=== PATIENT | female | born 1950 | race Caucasian/White ===

== ENCOUNTER → 2020-11-17 00:43 | Outpatient (CLI) | payer MEDICARE, SELFPAY ==
[2020-11-17 20:44] LABS: SARS-CoV-2 RNA PCR Negative
== END ==
PROVIDERS: PCP Internal Medicine; Visit Provider Internal Medicine Gastroenterology
DX: Z01.812 Encounter for preprocedural laboratory examination (principal); Z20.822 Contact with and (suspected) exposure to COVID-19
CPT/HCPCS: C9803; U0003; U0005

== ENCOUNTER 2020-11-20 01:03 | Day surgery (SDC) | payer MEDICARE, SELFPAY ==
[2020-11-09 14:38] VITALS: BMI 27.6
[2020-11-20 06:24] VITALS: BP 130/80; PULSE 65; RESP 16; TEMP 36.8; O2SAT 100; BMI 28.5
[2020-11-20] MEDS: LACTATED RINGERS 1,000 ML 150 ML IV CONT (06:38)
--- NOTE | 2020-11-20 07:00 | PM.HPGS ---
History of Present Illness History of Present Illness Consent: Risks, benefits, and alternatives have been discussed and questions answered. Patient agrees to proceed with procedure. Chief complaint: Positive Cologard Narrative: Heaven Shore is a 70 year old female For for colon cancer screening. She underwent a colic are test that was positive Review of Systems Review of Systems: All systems reviewed & are unremarkable except as noted in HPI and below PMFSH Family History Family History Father Diabetes mellitus Hypertension Mother Family history of congestive heart failure Social History Social History Smoking status: Never smoker Alcohol intake: current Drinks per week: 1 Substance use: never Substance use type: does not use Living arrangements: with family Gender identity (if verbalized by the patient): Female Meds Home Medications and Allergies Home Medications Medication Instructions Recorded Confirmed Type ergocalciferol (vitamin D2) 50 mcg 2,000 unit PO DAILY #30 tablet 07/27/20 11/20/20 Rx (2,000 unit) tablet irbesartan 300 mg tablet 300 mg PO DAILY #90 tablet 07/27/20 11/20/20 Rx lovastatin 40 mg tablet 40 mg PO DAILY #90 tablet 07/27/20 11/20/20 Rx sertraline 50 mg tablet 50 mg PO DAILY #90 tablet 07/27/20 11/20/20 Rx Allergies Allergy/AdvReac Type Severity Reaction Status Date / Time Iodinated Contrast Media Allergy Intermediate Unknown Verified 11/20/20 06:12 Vital Signs Vital Signs - 24 hr 11/20/20 06:24 Temperature 36.8 C Pulse Rate 65 Respiratory Rate 16 Blood Pressure 130/80 Pulse Oximetry 100 Exam Resp: Auscultation: clear to auscultation bilaterally Cardio: Rate: regular rate Rhythm: regular rhythm GI: GI Palp: Yes Soft to palpation and No Tenderness to palpation present (GI) Assessment and Plan Assessment and plan (1) Colon cancer screening: Code(s): Z12.11 - Encounter for screening for malignant neoplasm of colon Status: Acute Assessment and Plan: Colonoscopy with possible biopsy or polypectomy or cautery or injection of substances.
--- NOTE | 2020-11-20 07:19 | WPDANESEPPF ---
Anes - Initial Pre Proc Eval Procedure: Operation Date: 11/20/20 07:30 Proposed Procedures p Colonoscopy - Isaak Myers MD Date/Time: 11/20/20 07:19 Surgeon: Isaak Myers MD Pre Op Diagnosis: Positive Cologard Patient Data Age: 70 Gender: F Height: 5 ft 9 in Weight: 87.8 kg Last Vital Signs Temp 98.2 F 11/20/20 06:24 Pulse 65 11/20/20 06:24 Resp 16 11/20/20 06:24 BP 130/80 11/20/20 06:24 Pulse Ox 100 11/20/20 06:24 Allergies Allergy/AdvReac Type Severity Reaction Status Date / Time Iodinated Contrast Media Allergy Intermediate Unknown Verified 11/20/20 06:12 Home Medications Medication Instructions Recorded Confirmed Type ergocalciferol (vitamin D2) 50 mcg 2,000 unit PO DAILY #30 tablet 07/27/20 11/20/20 Rx (2,000 unit) tablet irbesartan 300 mg tablet 300 mg PO DAILY #90 tablet 07/27/20 11/20/20 Rx lovastatin 40 mg tablet 40 mg PO DAILY #90 tablet 07/27/20 11/20/20 Rx sertraline 50 mg tablet 50 mg PO DAILY #90 tablet 07/27/20 11/20/20 Rx Patient hx anesthesia problems: none Family hx anesthesia problems: none PMFSH Past Medical History Medical History (Updated 11/20/20 @ 07:15 by Wilner Avendaño MD) Essential (primary) hypertension Mixed hyperlipidemia Family History Family History Father Diabetes mellitus Hypertension Mother Family history of congestive heart failure Social History Social History Smoking status: Never smoker Alcohol intake: current Drinks per week: 1 Substance use: never Substance use type: does not use Living arrangements: with family Gender identity (if verbalized by the patient): Female Anes - Eval Final PreProcedure Day of Procedure 11/20/20 07:19 Patient weight: overweight Heart: regular rate and rhythm Lungs: clear to auscultation Airway: Mallampati scale class II Neurological: alert and oriented Last oral intake: >/= 8 hours ASA classification: II Emergent: no Anesthetic plan: proceed Anesthesia type and monitoring: general GIVS and standard monitoring Informed Consent: The patient's anesthetic plan and its attendant risks and benefits were discussed with the patient/family/POA. Questions were solicited and answers provided to the satisfaction of the patient/family/POA.
[2020-11-20 07:50] VITALS: BP 97/56; PULSE 60; RESP 16; O2SAT 97
--- NOTE | 2020-11-20 07:52 | SUR.OPER ---
Procedure completed. Descending colon polyp unretrievable, Dr. Myers aware.
[2020-11-20 08:00] VITALS: BP 110/63; PULSE 56; RESP 14; O2SAT 99
[2020-11-20 08:10] VITALS: BP 113/65; PULSE 57; RESP 20; O2SAT 99
== END 2020-11-20 08:22 | disposition home or self-care (01) ==
PROVIDERS: PCP Internal Medicine; Visit Provider Internal Medicine Gastroenterology
PROC: 0DJD8ZZ Inspection of Lower Intestinal Tract, Via Natural or Artificial Opening Endoscopic (ICD-10-PCS; CPT 45378; principal; 2020-11-20 07:30)
DX: Z12.11 Encounter for screening for malignant neoplasm of colon (principal); R19.5 Other fecal abnormalities; K63.5 Polyp of colon; K64.8 Other hemorrhoids; K57.30 Diverticulosis of large intestine without perforation or abscess without bleeding; I10 Essential (primary) hypertension; E78.2 Mixed hyperlipidemia
CPT/HCPCS: 45385; J2704; J7120

== ENCOUNTER 2020-12-14 09:58 | Outpatient (CLI) | payer MEDICARE, SELFPAY ==
--- NOTE | ~2020-12-14 | MM_ITS ---
EXAMINATION: MM screening [facility] BI w vishal HISTORY: Screening mammogram TECHNIQUE: Craniocaudal and mediolateral oblique 3-D tomosynthesis images were obtained and synthetic 2-D images were generated. CAD analysis was submitted and interpreted. COMPARISON: 11/22/2018, 08/18/2017 BREAST PARENCHYMAL COMPOSITION: The breasts are almost entirely fatty. FINDINGS: There is no evidence of suspicious mass, calcification, or architectural distortion to sugg est malignancy in either breast. There has been no suspicious interval change. IMPRESSION: 1. No mammographic evidence of malignancy. 2. Recommend routine screening mammography in one year. BI-RADS Category 1: Negative Reviewed, dictated and finalized at location A.
--- NOTE | ~2020-12-14 | DEXA_ITS ---
Bone Density Report Name: Heaven Shore Age: 70 Sex: Female Ethnicity: White Date of : 1950 Indication: postmenopausal; Referring Provider: NENA FIGUEROA Study: Bone densitometry was performed. Exam Date: December 14, 2020 Accession number: [id number] Bone Density: Region BMD T-score Z-score Classification AP Spine (L1-L4) 1.181 1.2 3.3 Normal Femoral Neck (Left) 0.723 -1.1 0.6 Osteopenia Total Hip (Left) 0.903 -0.3 1.1 Normal Total Hip Bilateral Avg 0.929 -0.1 1.4 Normal Femoral Neck (Right) 0.747 -0.9 0.8 Normal Total Hip (Right) 0.954 0.1 1.6 Normal World Health Organization criteria for BMD impression classify patients as: Normal (T-score at or above -1.0), Osteopenia (T-score between -1.0 and -2.5), or Osteoporosis (T-score at or below -2.5). 10-year Fracture Risk(1): Major Osteoporotic Fracture 8.7% Hip Fracture 0.9% Reported Risk Factors: [place] (), Neck BMD=0.723, BMI=29.3 (1) FRAX(R) Version 3.08. Fracture probability calculated for an untreated patient. Fracture probability may be lower if the patient has received treatment. Previous Exams: Region Exam Age BMD T-score BMD Change BMD Change Date g/cm2 vs Baseline vs Previous AP Spine(L1-L4) 12/14/2020 70 1.181 1.2 -0.086(-6.8%)* -0.086(-6.8%)* 08/18/2017 67 1.267 2.0 Total Hip(Left) 12/14/2020 70 0.903 -0.3 -0.001(-0.1%) -0.001(-0.1%) 08/18/2017 67 0.904 -0.3 Total Hip(Right) 12/14/2020 70 0.954 0.1 -0.016(-1.6%) -0.016(-1.6%) 08/18/2017 67 0.969 0.2 *Denotes significance at 95% confidence level, LSC for AP Spine = 0.022 g/cm2, LSC for Total Hip = 0.027 g/cm2 Clinical Information Provided by Patient: Has used the following medications: Vitamin D Patient maximum height was 69 Menopause Age: 54 Drinks caffeinated beverages Onset of menses at age 12 Number of children 2 Impression: The patient has low bone mass, based on the Left Femoral Neck T-score. The patient has an estimated ten-year risk of hip fracture of 0.9% and an estimated ten-year risk of major fracture of 8.7%, based on the WHO FRAX algorithm. The BMD for the AP Spine(L1-L4) decreased, changing by -6.8% since the last DXA exam. Discussion: BONE DENSITY IS LOW AT ONE OR MORE SKELETAL SITES. This patient's lowest T-score is low at one or more skeletal sites. It meets the World Health Organization's (WHO) criteria for ?low bone mass? (T-score between -1.0 and -
== END 2020-12-14 09:59 | disposition home or self-care (01) ==
LOC: ANHIMG 10:01
PROVIDERS: PCP Internal Medicine; Visit Provider Internal Medicine
DX: Z12.31 Encounter for screening mammogram for malignant neoplasm of breast (principal); Z78.0 Asymptomatic menopausal state; M85.852 Other specified disorders of bone density and structure, left thigh
CPT/HCPCS: 77063; 77067; 77080

== ENCOUNTER 2022-01-26 15:00 | Outpatient (CLI) | payer MEDICARE, SELFPAY ==
--- NOTE | ~2022-01-26 | MM_ITS ---
EXAMINATION: MM screening [facility] BI w vishal HISTORY: Screening mammogram TECHNIQUE: Craniocaudal and mediolateral oblique 3-D tomosynthesis images were obtained and synthetic 2-D images were generated. CAD analysis was submitted and interpreted. COMPARISON: 12/14/2020, 11/22/2018, 08/18/2017 bilateral screening mammogram examinations BREAST PARENCHYMAL COMPOSITION: There are scattered areas of fibroglandular density... FINDINGS: There is no evidence of suspicious mass, calcification, or architectural distortion to sugg est malignancy in either breast. There has been no suspicious interval change. IMPRESSION: 1. No mammographic evidence of malignancy. 2. Recommend routine screening mammography in one year. BI-RADS Category 1: Negative Reviewed, dictated and finalized at location A.
== END 2022-01-26 15:01 | disposition home or self-care (01) ==
PROVIDERS: PCP Internal Medicine; Visit Provider Obstetrics & Gynecology
DX: Z12.31 Encounter for screening mammogram for malignant neoplasm of breast (principal)
CPT/HCPCS: 77063; 77067

== ENCOUNTER → 2022-10-25 10:28 | Outpatient (CLI) | payer MEDICARE, SELFPAY ==
--- NOTE | ~2022-10-25 | XR_ITS ---
Right Knee Technique: AP, lateral, and sunrise views were obtained. Clinical History: Pain Findings: No fracture or dislocation is seen. Osseous alignment is anatomic. Minimal tricompartmental degenerative spurring noted. Soft tissues are unremarkable. No joint effusion is seen. Impression: Minimal tricompartmental degenerative spurring. Reviewed, dictated and finalized at [facility]. Impression: Minimal tricompartmental degenerative spurring.
--- NOTE | ~2022-10-25 | XR_ITS ---
Left Knee Technique: AP, lateral, and sunrise views were obtained. Clinical History: Pain Findings: No fracture or dislocation is seen. Osseous alignment is anatomic. Minimal degenerative spu rring at the lateral joint line and patella. Soft tissues are unremarkable. No joint effusion is seen . Impression: Minimal spurring at the lateral joint line and patella. Reviewed, dictated and finalized at location . Impression: Minimal spurring at the lateral joint line and patella.
== END ==
PROVIDERS: PCP Family Medicine; Visit Provider Family Medicine
DX: M25.561 Pain in right knee (principal); M25.562 Pain in left knee
CPT/HCPCS: 73562

== ENCOUNTER 2022-10-25 10:45 | Outpatient (CLI) | payer MEDICARE, SELFPAY ==
[2022-10-25 18:55] LABS: Basophils Percent Auto 0.4 % (0.2-1.2); Eosinophils Percent Auto 0.4 % (0-4.4); Hematocrit 39.6 % (37.0-47.0); Immature Granulocyte Absolute 0.01 K/mm3 (0.00-0.031); Immature Granulocyte Percent A 0.2 % (0-0.5); Lymphocytes Absolute Auto 1.54 K/mm3 (0.9-3.2); Lymphocytes Percent Auto 33.1 % (18.3-44.2); Mean Corpuscular HGB Conc 32.8 g/dl (32-36); Mean Corpuscular Hemoglobin 31.3 pg (26-34); Mean Corpuscular Volume 95.2 fl (80-100); Mean Platelet Volume 9.3 fl (7.4-10.4); Monocytes Absolute Auto 0.5 K/mm3 (0.1-0.6); Monocytes Percent Auto 10.8 % (2.6-8.5); Neutrophils Absolute Auto 2.6 K/mm3 (1.3-6.7); Neutrophils Percent Auto 55.1 % (45.5-73.1); Platelet Count Result 241 k/mm3 (150-375); Red Blood Count 4.16 M/mm3 (4.2-5.4); White Blood Count 4.7 K/mm3 (4.5-10.0)
[2022-10-25 20:04] LABS: Vitamin D 25 Hydroxy 54.3 ng/mL
[2022-10-25 21:28] LABS: Alanine Aminotransferase 35 U/L (6-35); Albumin Level 4.8 g/dL (3.5-5.1); Alkaline Phosphatase 56 U/L (38-126); Anion Gap 9 mmol/L (8-16); Aspartate Amino Transferase 36 U/L (14-36); Bilirubin,Total 0.5 mg/dL (0.2-1.3); Blood Urea Nitrogen 28 mg/dL (7-17); Calcium 9.6 mg/dL (8.4-10.2); Carbon Dioxide 24 mmol/L (22-30); Chloride 110 mmol/L (98-107); Cholesterol 191 mg/dL (0-200); Estimated Glomerular Filt Rate 55; Glucose 104 mg/dL (65-110); HDL Direct 61 mg/dL; Potassium 4.7 mmol/L (3.4-5.0); Sodium 143 mmol/L (137-145); Triglycerides 189 mg/dL (<150)
[2022-10-25 21:39] LABS: LDL Cholesterol Direct 85 mg/dL
== END 2022-10-25 10:46 | disposition home or self-care (01) ==
LOC: ANHGOSHLAB 10:47
PROVIDERS: PCP Family Medicine; Visit Provider Family Medicine
DX: E78.2 Mixed hyperlipidemia (principal); I10 Essential (primary) hypertension; R53.83 Other fatigue; Z13.29 Encounter for screening for other suspected endocrine disorder; E55.9 Vitamin D deficiency, unspecified
CPT/HCPCS: 36415; 80053; 80061; 82306; 84443; 85025

== ENCOUNTER 2022-12-14 12:30 | Outpatient (RCR) | payer MEDICARE, SELFPAY ==
--- NOTE | 2022-11-17 12:41 | PTOPEVAL1 ---
Assessment and note entered by Diane Mckeon, PT, DPT Evaluation Information Assessment Status Evaluation Diagnosis socorro knee pain Onset 4 months Subjective Information Pt reports lateral knee pain socorro, and medial knee pain on the R. She reports about a 4 months history of pain without a CARRIE. Pt reports no pain at rest while on Symbolta, she reports now her pain is only when coming to stand from a low surface, doing superintendent measurement, and when exercising. Reported Pain Level Pain Score 0,0: Self Report Assessment PT Clinical Summary Heaven presents to therapy today for her initial evaluation with a diagnosis of socorro knee pain L > R . Today she demonstrates great active ROM 0-130 deg socorro, great strength grossly 4+/5 - 5/5 throughout her BLEs. She demonstrates no gait deviations and ambulates with a good gait speed. She does have decreased patellar mobility socorro and rest in a medially shifted position. She demonstrates mild deviations during functional movements. Skilled physical therapy services are indicated to improve patellar tracking and mobility, to manage pain, and to return to baseline function. Plan of Care Interventions Gait Training,Hot Pack/Cold Pack,Manual Therapy, Neuro Re-education,Patient/Caregiver Educati, Therapeutic Activities,Therapeutic Exercise PT Services Indicated Yes Treatment Frequency and 1x/wk for 4 wks Duration These treatments will address the objective and functional deficits as defined above. The patient will be advanced safely and appropriately in order for the patient to progress towards his/her prior level of function. Additional exercises will be introduced and as well as a comprehensive home exercise program upon discharge, if needed, ?to ensure carryover of functional gains achieved in the clinic. This treatment plan has been reviewed and agreement upon by the patient.
--- NOTE | 2022-12-14 13:07 | PTOPDC ---
Assessment and note entered by Diane Mckeon, PT, DPT Evaluation Information Assessment Status Discharge Diagnosis socorro knee pain Onset 4 months Subjective Information Pt states overall the knee is doing great. She states she walked 5 miles yesterday without an increase in pain. Pt reports 95% improvement in overall symptoms. Pt reports no functional limitations and no motions that increase her pain. Reported Pain Level Pain Score 0,0: Self Report Assessment PT Clinical Summary Heaven presents to therapy today for her progress report following 4 visits of skilled therapy to treat her socorro knee pain. She reports no tenderness to palpation. She demonstrates improved gait, strength, and body awareness with functional movements. She has met all of her goals and no longer requires skilled therapy. She will be discharged at this time. Plan of Care PT Services Indicated No
== END 2022-12-14 13:10 | disposition home or self-care (01) ==
LOC: ANHGOSHPT 12:30
PROVIDERS: PCP Family Medicine; Visit Provider Family Medicine
DX: M25.561 Pain in right knee (principal); M25.562 Pain in left knee
CPT/HCPCS: 97110; 97112; 97161; 97530

== ENCOUNTER 2023-05-15 08:45 | Outpatient (CLI) | payer MEDICARE, SELFPAY ==
--- NOTE | ~2023-05-15 | MM_ITS ---
EXAMINATION: MM screening [facility] BI w vishal HISTORY: Screening mammogram TECHNIQUE: Craniocaudal and mediolateral oblique 3-D tomosynthesis images were obtained and synthetic 2-D images were generated. CAD analysis was submitted and interpreted. COMPARISON: 01/26/2022, 12/14/2020, 11/22/2018 bilateral screening mammogram examinations BREAST PARENCHYMAL COMPOSITION: There are scattered areas of fibroglandular density. FINDINGS: Stable fibroglandular asymmetry of the breasts since 11/22/2018. There is no evidence of vicky picious mass, calcification, or architectural distortion to suggest malignancy in either breast. Ther e has been no suspicious interval change. IMPRESSION: 1. No mammographic evidence of malignancy. 2. Recommend routine screening mammography in one year. BI-RADS Category 1: Negative Reviewed, dictated and finalized at location A.
== END 2023-05-15 08:46 | disposition home or self-care (01) ==
LOC: ANHIMG 08:47
PROVIDERS: PCP Family Medicine; Visit Provider Obstetrics & Gynecology
DX: Z12.31 Encounter for screening mammogram for malignant neoplasm of breast (principal)
CPT/HCPCS: 77063; 77067

== ENCOUNTER 2023-06-23 09:42 | Outpatient (CLI) | payer MEDICARE, SELFPAY ==
--- NOTE | ~2023-06-23 | DEXA_ITS ---
Bone Density Report Name: DELMER MORRISON Age: 72 Sex: Female Ethnicity: White Date of : 1950 Indication: postmenopausal; screening for osteoporosis; Referring Provider: ELEAZAR VEGA Study: Bone densitometry was performed. Exam Date: June 23, 2023 Accession number: [id number] Bone Density: Region BMD T-score Z-score Classification AP Spine(L1-L4) 1.177 1.2 3.4 Normal Femoral Neck (Left) 0.713 -1.2 0.7 Osteopenia Total Hip (Left) 0.895 -0.4 1.2 Normal Femoral Neck (Right) 0.779 -0.6 1.3 Normal Total Hip (Right) 0.939 0.0 1.6 Normal Total Hip Mean 0.917 -0.2 1.4 Normal World Health Organization criteria for BMD impression classify patients as: Normal (T-score at or above -1.0), Osteopenia (T-score between -1.0 and -2.5), or Osteoporosis (T-score at or below -2.5). 10-year Fracture Risk(1): Major Osteoporotic Fracture 9.4% Hip Fracture 1.2% Reported Risk Factors: [place] (), Neck BMD=0.713, BMI=29.4 (1) FRAX(R) Version 3.08. Fracture probability calculated for an untreated patient. Fracture probability may be lower if the patient has received treatment. Previous Exams: Region Exam Age BMD T-score BMD Change BMD Change Date g/cm2 vs Baseline vs Previous AP Spine (L1-L4) 06/23/2023 72 1.177 1.2 -0.090 (-7.1%) -0.004 (-0.3%) 12/14/2020 70 1.181 1.2 -0.086 (-6.8%) -0.086 (-6.8%) 08/18/2017 67 1.267 2.0 Total Hip(Left) 06/23/2023 72 0.895 -0.4 -0.009 (-1.0%) -0.008 (-0.9%) 12/14/2020 70 0.903 -0.3 -0.001 (-0.1%) -0.001 (-0.1%) 08/18/2017 67 0.904 -0.3 Total Hip(Right) 06/23/2023 72 0.939 0.0 -0.030 (-3.1%) -0.015 (-1.6%) 12/14/2020 70 0.954 0.1 -0.016 (-1.6%) -0.016 (-1.6%) 08/18/2017 67 0.969 0.2 *Denotes significance at 95% confidence level, LSC for AP Spine = 0.022 g/cm2, LSC for Total Hip = 0.027 g/cm2 Clinical Information Provided by Patient: Has used the following medications: Vitamin D Patient maximum height was 69 Menopause Age: 54 Drinks caffeinated beverages Onset of menses at age 12 Number of children 2 Impression: The patient has low bone mass, based on the Left Femoral Neck T-score. The patient has an estimated ten-year risk of hip fracture of 1.2% and an estimated ten-year risk of major fracture of 9.4%, based on the WHO FRAX algorithm. No significant bone loss was observed. Discussion: BONE DENSITY IS LOW AT ONE OR MO
== END 2023-06-23 09:43 | disposition home or self-care (01) ==
PROVIDERS: PCP Family Medicine; Visit Provider Obstetrics & Gynecology
DX: Z78.0 Asymptomatic menopausal state (principal); M85.852 Other specified disorders of bone density and structure, left thigh
CPT/HCPCS: 77080

== ENCOUNTER 2023-11-07 10:12 | Outpatient (CLI) | payer MEDICARE, SELFPAY ==
[2023-11-07 14:33] LABS: Alanine Aminotransferase 34 U/L (6-35); Alkaline Phosphatase 54 U/L (38-126); Anion Gap 5 mmol/L (4-12); Aspartate Amino Transferase 55 U/L (14-36); Bilirubin,Total 0.5 mg/dL (0.2-1.3); Blood Urea Nitrogen 23 mg/dL (7-17); Calcium 8.9 mg/dL (8.4-10.2); Carbon Dioxide 26 mmol/L (22-30); Chloride 106 mmol/L (98-107); Cholesterol 183 mg/dL (0-200); Estimated Glomerular Filt Rate 55; Glucose 98 mg/dL (65-110); HDL Direct 52 mg/dL; Potassium 4.5 mmol/L (3.4-5.0); Sodium 137 mmol/L (137-145); Triglycerides 122 mg/dL (<150)
[2023-11-07 14:44] LABS: LDL Cholesterol Direct 99 mg/dL
== END 2023-11-07 10:13 | disposition home or self-care (01) ==
PROVIDERS: PCP Family Medicine; Visit Provider Family Medicine
DX: E78.2 Mixed hyperlipidemia (principal); Z13.228 Encounter for screening for other metabolic disorders; Z13.220 Encounter for screening for lipoid disorders
CPT/HCPCS: 36415; 80053; 80061

== ENCOUNTER 2024-05-17 08:57 | Outpatient (CLI) | payer MEDICARE, SELFPAY ==
--- NOTE | ~2024-05-17 | MM_ITS ---
EXAMINATION: MM screening [facility] BI w vishal HISTORY: Screening TECHNIQUE: Craniocaudal and mediolateral oblique 3-D tomosynthesis images were obtained and synthetic 2-D images were generated. CAD analysis was submitted and interpreted. COMPARISON: Comparison to multiple prior studies sequentially, with oldest reviewed study dated 08/18. BREAST PARENCHYMAL COMPOSITION: Not dense: There are scattered areas of fibroglandular density. FINDINGS: There is no evidence of suspicious mass, calcification, or architectural distortion to sugg est malignancy in either breast. There has been no suspicious interval change. IMPRESSION: 1. No mammographic evidence of malignancy. 2. Recommend routine screening mammography in one year. BI-RADS Category 1: Negative Reviewed, dictated and finalized at location B.
== END 2024-05-17 08:58 | disposition home or self-care (01) ==
LOC: ANHIMG 09:01
PROVIDERS: PCP Family Medicine; Visit Provider Obstetrics & Gynecology
DX: Z12.31 Encounter for screening mammogram for malignant neoplasm of breast (principal)
CPT/HCPCS: 77063; 77067

== ENCOUNTER 2025-05-19 08:39 | Outpatient (CLI) | payer MEDICARE, SELFPAY ==
--- NOTE | ~2025-05-19 | MM_ITS ---
EXAMINATION: MM screening [facility] BI w vishal HISTORY: Screening TECHNIQUE: Craniocaudal and mediolateral oblique 3-D tomosynthesis images were obtained and synthetic 2-D images were generated. CAD analysis was submitted and interpreted. COMPARISON: 05/17/2024 BREAST PARENCHYMAL COMPOSITION: There are scattered areas of fibroglandular density. FINDINGS: There is no evidence of suspicious mass, calcification, or architectural distortion to suggest malignancy. There has been no suspicious interval change. IMPRESSION: 1. No mammographic evidence of malignancy. Recommend routine screening mammography in one year. BI-RADS Category 2: Benign finding(s) Reviewed, dictated and finalized at location Q. IMPRESSION: 1. No mammographic evidence of malignancy. Recommend routine screening mammogra phy in one year. BI-RADS Category 2: Benign finding(s)
--- NOTE | ~2025-05-19 | DEXA_ITS ---
Bone Density Report Name: DELMER MORRISON Age: 74 Sex: Female Ethnicity: White Date of : 1950 Indication: postmenopausal; screening for osteoporosis; Referring Provider: MASON ESTEBAN Study: Bone densitometry was performed. Exam Date: May 19, 2025 Accession number: [id number] Bone Density: Region BMD T-score Z-score Classification AP Spine(L1-L4) 1.165 1.1 3.4 Normal Femoral Neck (Left) 0.687 -1.5 0.6 Osteopenia Total Hip (Left) 0.933 -0.1 1.6 Normal Femoral Neck (Right) 0.755 -0.8 1.2 Normal Total Hip (Right) 0.956 0.1 1.8 Normal Total Hip Mean 0.944 0.0 1.7 Normal World Health Organization criteria for BMD impression classify patients as: Normal (T-score at or above -1.0), Osteopenia (T-score between -1.0 and -2.5), or Osteoporosis (T-score at or below -2.5). 10-year Fracture Risk(1): Major Osteoporotic Fracture 10% Hip Fracture 1.8% Reported Risk Factors: [place] (), Neck BMD=0.687, BMI=29.7 (1) FRAX(R) Version 3.08. Fracture probability calculated for an untreated patient. Fracture probability may be lower if the patient has received treatment. Previous Exams: Region Exam Age BMD T-score BMD Change BMD Change Date g/cm2 vs Baseline vs Previous AP Spine (L1-L4) 05/19/2025 74 1.165 1.1 -0.102 (-8.0%) -0.012 (-1.0%) 06/23/2023 72 1.177 1.2 -0.090 (-7.1%) -0.004 (-0.3%) 12/14/2020 70 1.181 1.2 -0.086 (-6.8%) -0.086 (-6.8%) 08/18/2017 67 1.267 2.0 Total Hip(Left) 05/19/2025 74 0.933 -0.1 0.029 (3.2%)* 0.037 (4.2%)* 06/23/2023 72 0.895 -0.4 -0.009 (-1.0%) -0.008 (-0.9%) 12/14/2020 70 0.903 -0.3 -0.001 (-0.1%) -0.001 (-0.1%) 08/18/2017 67 0.904 -0.3 Total Hip(Right) 05/19/2025 74 0.956 0.1 -0.013 (-1.3%) 0.017 (1.9%) 06/23/2023 72 0.939 0.0 -0.030 (-3.1%) -0.015 (-1.6%) 12/14/2020 70 0.954 0.1 -0.016 (-1.6%) -0.016 (-1.6%) 08/18/2017 67 0.969 0.2 *Denotes significance at 95% confidence level, LSC for AP Spine = 0.022 g/cm2, LSC for Total Hip = 0.027 g/cm2 Clinical Information Provided by Patient: Has used the following medications: Vitamin D, Calcium Patient maximum height was 69 Menopause Age: 54 Drinks caffeinated beverages Onset of menses at age 12 Number of children 2 Impression: The patient has low bone mass, based on the Left Femoral Neck T-score. The patient has an estimated ten-year risk of hip fracture of 1.8% and an estimated ten-year risk of major fracture of 10%, based on the WHO FRAX algorithm. No significant bone loss was observed. Discussion: BONE DENSITY IS LOW AT ONE OR MORE SKELETAL SITES. This patient's lowest T-score is low at one or more skeletal sites. It meets the World Health Organization's (WHO) criteria for ?low bone mass? (T-score between -1.0 and -2.5). The patient's 10-year risk of fracture as calculated by FRAX is less than the threshold where pharmacological therapy is recommended by the National Osteoporosis Foundation (NOF). However, all treatment decisions require clinical judgment and consideration of individual patient factors, including patient preferences, comorbidities, previous drug use, risk factors not captured in the FRAX model (e.g., frailty, falls, vitamin D deficiency, increased bone turnover, interval significant decline in bone density) and possible under or overestimation of fracture risk by FRAX. The patient should follow a healthful lifestyle (good nutrition with adequate calcium and vitamin D, and appropriate weight-bearing exercise). Follow-Up: Consider repeating this study in 2 to 3 years to reassess this patient's status, or sooner if there is some new clinical indication. Reported by: CHERY on 05/19/2025 9:26:00 AM. Reviewed, dictated and finalized at location A.
--- OUTSIDE RECORDS SUMMARY | 2025-05-19 08:56 | XMS_ITS | Clinical Summary ---
Author Organization [facility] Address [address] [place] [id number] Care Team Providers Care Monitor And Storage Bin Tender Name Role Phone Med Tobar MD Primary Care Provi lexus Allergies Active Allergy Reactions Criticality Noted Date Comments Amlodipine Chest tightness Medium 01/22/2025 Iodine Hives Medium 07/17/2024 Medications cholecalciferol-soy isoflavone 2,000-64 unit-mg tablet Take by mouth Active loratadine (CLARITIN) 10 mg tablet Take 1 tablet (10 mg total) by mouth daily Active rosuvastatin (CRESTOR) 20 mg tabletIndications:M ixed hyperlipidemia Take 1 tablet (20 mg total) by mouth daily 90 tablet 1 5 07/21/20 25 Active irbesartan (AVAPRO) 300 mg tabletIndications:E ssential hypertension TAKE 1 TABLET(300 MG) BY MOUTH DAILY 90 tablet [address] (CYMBALTA) 60 mg capsuleIndications: Fibromyalgia TAKE 1 CAPSULE(60 MG) BY MOUTH DAILY 90 capsule 1 5 Active Active Problems Problem Noted Date Diagnosed Date Medicare annual wellness visit, subsequent 01/22 Right elbow pain 01/22/2025 Assessment & Plan (02/12/2025 2:28 PM CDT): Orders: Ambulatory referral to Sports Medicine Essential hypertension 07/17/2024 Mixed hyperlipidemia 07/17/2024 Class 1 obesity without seri ous comorbidity with body mass index (BMI) of 30.0 to 30.9 in adult 07/17/2024 Fibromyalgia 07/17/2024 Immunizations Immunization Administration Dates Next Due Influenza, Quadrivalent, Hig h Dose, Preservative Free, Intrr 05/01/2023,05/10/2022,04/20/2021,04/15 Influenza, Trivalent, High D ose, Split, Preservative Free, Intramuscular 04/11/2025,04/09/2024,04/09/2019,04/29,04/19/2017 Influenza, Unspecified 04/09/2024 Pfizer SARS-CoV-2 Monovalent Vaccination (12+ Yrs) PURPLE 10/30/2020,10/02/2020 Pneumococcal Conjugate PCV 13 06/22/2017 Pneumococcal Polysaccharide PPV23 04/09/2019 RSV Vaccine, Pref, Recombina nt, Subunit, Adjuvanted, PF, IM (Arexvy) 05/25/2023 Tdap 04/20/2021 ZOSTER Recombinant 06/25/2020,04/15/2020 Surgical History Surgery Date Site/Laterality Comments CATARACT EXTRACTION WISDOM TOOTH EXTRACTION BLEPHAROPTOSIS REPAIR Social History Tobacco Use Types Packs/Day Years Used Date Smoking Tobacco: Never Smokeless Tobacco: Never Tobacco Cessation:Counseling Given: Not Answered PHQ-2 Answer Date Recorded PHQ-2 Total Score (If total score is 3 or more points, staff should administer the PHQ-9) 0 01/22/2025 PHQ-9 Answer Date Recorded PHQ-9 Total Score 0 01/22/2025 Comments Unknown Sex and Gender Information Value Date Recorded Sex Assigned at Not on file Legal Sex Female 10:53 AM CDT Gender Identity Not on file Sexual Orientation Not on file Obstetrics History Last Filed Vital Signs Vital Sign Reading Time Taken Comments Blood Pressure 119/70 02/12/2025 1:34 PM CDT Pulse 77 02/12/2025 1:34 PM CDT Temperature 36.7 C (98.1 F) 01/22/2025 9:13 AM CDT Respiratory Rate - - Oxygen Saturation 99% 01/22/2025 9:13 AM CDT Inhaled Oxygen Concentration - - Weight 91.5 kg (201 lb 12.8 oz) 02/12/2025 1:34 PM CDT Height 175.3 cm (5' 9) 02/12/2025 1:34 PM CDT Body Mass Index 29.8 02/12/2025 1:34 PM CDT Plan of Treatment Health Maintenance Due Date Last Done Comments Breast Cancer Screening-Mammogram 1950 Hepatitis C Screening 1950 Osteoporosis Screening-Bone Density Scan 1950 Depression Screening 01/22/2026 01/22/2025, 01/22/2025, 07/17/2024 Fall Risk Assessment 01/22/2026 01/22/2025, 07/17/20 24 Well Visit 65+ 01/22/2026 01/22/2025, 01/22/2025 Colon Cancer Screening-Colonoscopy 11/20/2030 11/20/2020 DTaP/Tdap/Td Vaccine (2 - Td or Tdap) 04/20/2031 04/20/2021 Pneumococcal vaccine 65+ Completed 04/09/2019, 06/07 Zoster Vaccine Completed 06/25/2020, 04/15/2020 Covid-19 Vaccine Completed 04/11/2025, 10/2023, 05/02/2023, Additional history exists Influenza Vaccine Completed 04/11/2025, , 04/09/2024, Additional history exists Hepatitis B Screening Discontinued Insurance [facility]ICARE [facility] MEDICARE [facility] Care Teams Monitor And Storage Bin Tender Relationship Specialty Start Date End Date Med Tobar MD [id number] [facility] [address] [place] [address] PCP - General Family Practice 07/17/24
== END 2025-05-19 08:40 | disposition home or self-care (01) ==
LOC: ANHFOHIMG 08:41
PROVIDERS: PCP Family Medicine; Visit Provider Nurse Practitioner Family
DX: Z12.31 Encounter for screening mammogram for malignant neoplasm of breast (principal); M85.89 Other specified disorders of bone density and structure, multiple sites; Z78.0 Asymptomatic menopausal state; Z13.820 Encounter for screening for osteoporosis
CPT/HCPCS: 77063; 77067; 77080